=== PATIENT | female | born 1985 | race Caucasian/White ===

== ENCOUNTER 2020-10-31 14:11 | Emergency (ER) | payer MEDICAID ==
[~2020-10-31] VITALS: Ht 170.2 cm; Wt 82.0 kg
[2020-10-31 14:57] LABS: CLARITY URINE CLEAR (CLEAR); COLOR URINE YELLOW (YELLOW); KETONES URINE 1+ (NEGATIVE); LEUKOCYTE ESTERASE URINE 2+ (NEGATIVE); NITRITE URINE NEGATIVE (NEGATIVE); OCCULT BLOOD URINE 1+ (NEGATIVE); PH URINE 6.5 (4.5-8.0); PROTEIN URINE NEGATIVE (NEGATIVE); SPECIFIC GRAVITY URINE 1.005 (1.005-1.030); UROBILINOGEN URINE 0.2 E.U./dL (0.2-1.0)
[2020-10-31 15:15] VITALS: BP 124/68
== END 2020-10-31 15:16 | disposition home or self-care (01) ==
LOC: ER 14:11
DX: O23.12 Infections of bladder in pregnancy, second trimester (principal); Z3A.22 22 weeks gestation of pregnancy; Z90.49 Acquired absence of other specified parts of digestive tract
CPT/HCPCS: 81003; 81025; 87077; 99283

== ENCOUNTER 2020-12-02 12:40 | Observation (INO) | payer MEDICAID ==
[~2020-12-02] VITALS: Ht 165.1 cm; Wt 73.5 kg
== END 2020-12-02 15:45 | disposition home or self-care (01) ==
LOC: 8 EST LDRP 12:40
PROVIDERS: ADMIT Obstetrics & Gynecology; ATTEND Obstetrics & Gynecology
DX: O98.513 Other viral diseases complicating pregnancy, third trimester (principal); U07.1 COVID-19; O36.8130 Decreased fetal movements, third trimester, not applicable or unspecified; Z3A.28 28 weeks gestation of pregnancy
CPT/HCPCS: 76805; 99281; G0378; U0003; 59025